=== PATIENT | male | born 1970 | race Caucasian/White ===

== ENCOUNTER 2023-10-24 14:45 | Emergency (ER) | payer BC, SELFPAY ==
[2023-10-24] VITALS (7 sets, daily range): BP systolic 155–183; BP diastolic 94–130; BMI 29.3
--- NOTE | 2023-10-24 15:17 | ED.GENMED ---
History of Present Illness
General
Chief Complaint: Blood Pressure Problem
Time Seen by Provider: 10/24/23 15:07
Travel History
Have you had any contact with someone who has COVID-19?: No
Do you have any symptoms of coronavirus? Fever > 100 degrees, chills, cough, shortness of breath, sore throat, loss of taste or smell, muscle aches, or headache?: No
History of Present Illness
History of Present Illness:
61-year-old male with history of hypertension presents to the emergency department from outpatient colonoscopy due to abnormal blood pressure and heart rate. He notes that he did miss his nighttime dose of metoprolol last night. Overall he feels
well and denies complaints. He was given IV fluids and 2.5 mg of IV metoprolol at the colonoscopy center however vital signs did not improve thus he was transferred to emergency department and the procedure was aborted. Denies any chest pain,
shortness of breath
Review of Systems
Review of Systems
Allergies reviewed?: Yes
All Other Systems: ROS reviewed and negative except as documented in HPI and ROS
Phy Exam
Physical Exam
Physical Exam:
GEN: Well appearing, NAD, WDWN
HEENT: Oral mucosa moist, no scleral icterus
Cardiac: Regular rate and rhythm, no murmurs
Lung: No respiratory distress, no tachypnea, lungs CTAB
MSK: No gross deformity or injuries
Skin: Good color, no pallor or jaundice, no rashes
Neuro: AO x3, moves all extremities freely
Psych: Calm, cooperative
Course
Orders/Labs/Results
Orders:
Orders
10/24/23 14:52
Electrocardiogram (*1) Urgent
Reason for Study: Chest Pain
EKG- Treatment ONCE
10/24/23 15:16
Lactated Ringers [Lr] 1,000 ml IV BOLUS
10/24/23 16:04
Complete Blood Count/With Diff Urgent
Comprehensive Metabolic Panel Urgent
Abnormal Lab Results
10/24/23
16:04
Abs Immat Gran (auto) 0.1 H 10^3/uL
(0-0.05)
Absolute Neuts (auto) 7.3 H 10^3/uL
(1.4-6.5)
Absolute Lymphs (auto) 1.0 L 10^3/uL
(1.2-3.4)
Immature Gran % 0.6 H %
(0-0.5)
Neutrophils % 80.9 H %
(42.2-75.2)
Lymphocytes % 10.7 L %
(20.5-51.1)
Glucose 120 H mg/dl
(70-99)
10/24/23 16:04
10/24/23 16:04
Vital Signs
Initial and Last Documented VS:
Initial Vital Signs
Temp Pulse Resp BP Pulse Ox
98.3 F 110 20 183/130 98
10/24/23 14:47 10/24/23 14:47 10/24/23 14:47 10/24/23 14:47 10/24/23 14:47
Last Documented Vital Signs
Temp Pulse Resp BP Pulse Ox
98.3 F 97 18 157/97 98
10/24/23 14:47 10/24/23 17:20 10/24/23 17:20 10/24/23 17:20 10/24/23 17:20
MDM/Problems Addressed
MDM/Problems Addressed:
Unclear cause of the patient's vital sign abnormalities. Could be on the basis of missing his beta-melanie dose last night. His vitals did improve throughout stay in emergency department and workup was normal. Discharged in stable condition
Comment
Comment:
Initial EKG independently interpreted by me shows a sinus tachycardia at a rate of [address] changes concerning for ischemia, QTc of 441
*Critical Care Note
Total Time (30-74mins, 75-104mins- exclusive of procedures): Not Applicable
ED Attending Note
-
Portions of this chart may have been created with voice recognition software.� Occasional wrong word or��sound alike� substitutions may have occurred due to the inherent limitations of voice recognition software.
Discharge Plan
Departure
Patient Disposition: Home (Routine Discharge)
Date of Disposition: 10/24/23
Time of Disposition: 17:19
Patient with high blood pressure during this ER visit?: No
Discharge Problem:
Elevated blood pressure reading
Instructions: High Blood Pressure (DC)
Referrals:
Manoj Kate MD [Family Provider] -
Interventions
Interventions:
*Risk Screen - Suicide Last Done: 10/24/23 14:47
*General Assessment Last Done: 10/24/23 14:47
*Neglect/Abuse Screening Last Done: 10/24/23 14:47
ED- Fall Risk Assessment Last Done: 10/24/23 15:40
*ED COVID-19 Vaccine History Last Done: 10/24/23 15:40
*Nursing Disposition Last Done: 10/24/23 17:20
ED- Cardiac Assessment Last Done: 10/24/23 15:40
ED- Neurological Assessment Last Done: 10/24/23 15:40
ED- Pulmonary Assessment Last Done: 10/24/23 15:40
Discharge Date and Time
Discharge Date/Time: 10/24/23 17:25
Print Language: MALAGASY
[2023-10-24] MEDS: LR 1000 IV (16:00)
[2023-10-24 16:27] LABS: % Basophils 0.3 % (0-2); % Eosinophils 0.7 % (0-6); % Immature Granulocytes 0.6 % (0-0.5); % Lymphocytes 10.7 % (20.5-51.1); % Monocytes 6.8 % (1.7-9.3); % Neutrophils 80.9 % (42.2-75.2); Absolute Eosinophils 0.1 10^3/uL (0-0.7); Absolute Immature Granulocytes 0.1 10^3/uL (0-0.05); Absolute Monocytes 0.6 10^3/uL (0.1-0.6); Absolute Neutrophils 7.3 10^3/uL (1.4-6.5); Hematocrit 48.1 % (39.0-52.0); Hemoglobin 17.5 g/dL (13.0-18.0); Mean Corp Hgb Conc. 36.4 g/dL (33.0-37.0); Mean Corpuscular Hgb 30.3 pg (27.0-31.0); Mean Corpuscular Volume 83.4 fL (80.0-94.0); Mean Platelet Volume 8.9 fL (7.4-10.4); Nucleated Red Blood Cells % 0 % (-); Platelet Count 239 10^3/uL (130-400); Red Blood Cell Count 5.77 10^6/uL (4.70-6.10)
[2023-10-24 16:28] LABS: ALT (SGPT) 41 U/L (0-50); AST (SGOT) 39 U/L (17-59); Albumin 4.2 g/dl (3.5-5.0); Alkaline Phosphatase 69 U/L (38-126); Blood Urea Nitrogen 9 mg/dl (9-20); Calcium 8.9 mg/dl (8.4-10.2); Carbon Dioxide 29 mmol/L (22-30); Chloride 103 mmol/L (98-107); Glucose 120 mg/dl (70-99); Sodium 137 mmol/L (135-145); Total Bilirubin 0.7 mg/dl (0.2-1.3); Total Protein 6.7 g/dl (6.3-8.2); eGFR > 60.00
--- NOTE | 2023-10-24 17:45 | EDRN ---
Discharge instructions given to patient by Mainor Pitts PA-C. Patient verbalized understanding. Ambulated with steady gait to the [facility].
== END 2023-10-24 17:25 | disposition home or self-care (01) ==
LOC: EMR 14:45
PROVIDERS: Physician Assistant; EMERGENCY PHYSICIAN Emergency Medicine; FAMILY PHYSICIAN Family Medicine
DX: I10 Essential (primary) hypertension (principal)
CPT/HCPCS: 99284; 96360; 80053; 85025; 93005